=== PATIENT | female | born 1935 | race Caucasian/White ===

== ENCOUNTER 2017-04-18 21:00 | Emergency (ER) | payer MEDICARE, OTHER ==
[2017-04-18 21:10] VITALS: BP 178/90; PULSE 95; RESP 16; TEMP 97.5; O2SAT 98
== END 2017-04-18 21:13 | disposition left against medical advice (07) ==
DX: Z53.21 Procedure and treatment not carried out due to patient leaving prior to being seen by health care provider (principal)